=== PATIENT | male | born 1955 | race Caucasian/White ===

== ENCOUNTER 2024-08-02 15:09 | Inpatient (IN) | payer MEDICARE, OTHER ==
[~2024-08-02] VITALS: Ht 172.7 cm; Wt 74.8 kg
[2024-08-02] MEDS ORDERED: LORA0.5T48 PO (15:43)
[2024-08-02] MEDS ORDERED: BISA-79 PO (15:43)
[2024-08-02] MEDS ORDERED: ASCO500C18 PO (15:43)
[2024-08-02] MEDS ORDERED: BENA40TA8 PO (15:43)
[2024-08-02] MEDS ORDERED: DOCU250C14 PO (15:43)
[2024-08-02] MEDS ORDERED: ATOR40TA PO (15:43)
[2024-08-02] MEDS ORDERED: ASPI81TA31 PO (15:43)
[2024-08-02] MEDS ORDERED: CLOP75TA33 PO (15:43)
[2024-08-02] MEDS ORDERED: DIVA-76 PO (15:43)
[2024-08-02] MEDS ORDERED: ACET325T53 PO (15:43)
[2024-08-02] MEDS ORDERED: POLY17PO4 PO (15:55)
[2024-08-02] MEDS ORDERED: FOLI1TAB94 PO (15:55)
[2024-08-02] MEDS ORDERED: MAGN400O6 PO (15:55)
[2024-08-02] MEDS ORDERED: MULT-1045 PO (15:55)
[2024-08-02] MEDS ORDERED: QUET25TA PO (15:55)
[2024-08-02] MEDS ORDERED: TRAZ-182 PO (15:55)
[2024-08-02] MEDS ORDERED: THIA100T88 PO (15:55)
[2024-08-02] MEDS ORDERED: IPRA3AMP22 IH (15:55)
[2024-08-02] MEDS ORDERED: BISA10SU61 RC (15:55)
[2024-08-02] MEDS ORDERED: ACET-2154 PO (15:55)
[2024-08-02] MEDS ORDERED: NIFE90TA61 PO (15:55)
[2024-08-02] MEDS ORDERED: NICO-670 TD (15:55)
[2024-08-02] MEDS ORDERED: NA P133E RC (15:55)
[2024-08-02 20:00] VITALS: BP 152/63; TEMP 99; O2SAT 99
[2024-08-02] MEDS ORDERED: TEMAZEPAM 7.5 MG CAPSULE PO PRN (20:30)
[2024-08-02] MEDS ORDERED: MAG HYDROX/AL HYDROX/SIMETH 30 ML LIQUID UDC PO PRN (20:30)
[2024-08-02] MEDS ORDERED: MAGNESIUM HYDROXIDE 30 ML LIQUID UDC PO PRN (20:30)
[2024-08-02] MEDS ORDERED: ACETAMINOPHEN 325 MG TABLET PO PRN (20:30)
[2024-08-02] MEDS: LORAZEPAM 1 MG TABLET PO PRN (20:37)
[2024-08-02] MEDS: BLOOD SUGAR DIAGNOSTIC 1 EACH STRIP VI ONE (20:45)
[2024-08-02] MEDS: TEMAZEPAM 7.5 MG CAPSULE PO PRN (22:49)
[2024-08-03] MEDS: OLANZAPINE 10 MG VIAL IM ONE
[2024-08-03] MEDS: LORAZEPAM 1 MG TABLET PO PRN (04:02)
[2024-08-03 08:10] VITALS: BP 120/67; TEMP 97.8; O2SAT 98
[2024-08-03] MEDS ORDERED: BISACODYL 10 MG SUPP.RECT RC PRN (09:00)
[2024-08-03] MEDS: DOCUSATE SODIUM 250 MG CAPSULE PO SCH (09:00)
[2024-08-03] MEDS ORDERED: BISACODYL 5 MG TABLET.DR PO PRN (09:00)
[2024-08-03] MEDS: NIFEdipine XL 90 MG TABSR PO SCH (09:00)
[2024-08-03] MEDS: ASPIRIN 81 MG TAB.CHEW PO SCH (09:52)
[2024-08-03] MEDS: FOLIC ACID 1 MG TABLET PO SCH (09:52)
[2024-08-03] MEDS: BENAZEPRIL HCL 20 MG TABLET PO SCH (09:53)
[2024-08-03] MEDS: MIRALAX 17 GM POWD.PACK PO SCH (09:54)
[2024-08-03] MEDS: MULTIVITAMINS,THERAPEUTIC TABLET PO SCH (09:55)
[2024-08-03] MEDS: CLOPIDOGREL 75 MG TABLET PO SCH (09:55)
[2024-08-03] MEDS: ASCORBIC ACID 500 MG TABLET PO SCH (09:56)
[2024-08-03] MEDS: THIAMINE HCL 100 MG TABLET PO SCH (09:56)
[2024-08-03] MEDS ORDERED: QUET25TA36 PO (09:58)
[2024-08-03] MEDS: NICOTINE 7 MG/24HR PATCH TD SCH (11:24)
[2024-08-03] MEDS: QUETIAPINE FUMARATE 25 MG TABLET PO SCH ×2 (13:30→20:37)
[2024-08-03 17:02] VITALS: BP 126/75; TEMP 97.8; O2SAT 98
[2024-08-03 20:00] VITALS: BP 151/64; TEMP 98.2; O2SAT 97
[2024-08-03] MEDS: TRAZODONE 50 MG TABLET PO SCH (20:36)
[2024-08-03] MEDS: ATORVASTATIN 40 MG TABLET PO SCH (21:15)
[2024-08-04] MEDS: TEMAZEPAM 15 MG CAPSULE PO PRN (00:43)
[2024-08-04 08:09] VITALS: BP 103/56; TEMP 97.8; O2SAT 97
[2024-08-04] MEDS: DIVALPROEX 250 MG TABLET.DR PO SCH (08:45)
[2024-08-04] MEDS: diphenhydrAMINE 50 MG/1 ML VIAL IM STA (12:59)
[2024-08-04] MEDS: LORAZEPAM 2 MG/1 ML VIAL IM STA (12:59)
[2024-08-04] MEDS: HALOPERIDOL LACTATE 5 MG/1 ML VIAL IM STA (13:00)
[2024-08-04 20:00] VITALS: BP 141/81; TEMP 97.6; O2SAT 99
[2024-08-05 08:06] LABS: THYROID STIMULATING HORMONE 2.231 mIU/mL (0.358-3.740)
[2024-08-05] MEDS: QUETIAPINE FUMARATE 25 MG TABLET PO SCH (21:40)
[2024-08-06 07:30] VITALS: BP 150/84; TEMP 98.7; O2SAT 97
[2024-08-06 16:30] VITALS: BP 151/76; TEMP 98.2; O2SAT 98
[2024-08-06 20:01] VITALS: BP 118/70; TEMP 98.1; O2SAT 96
[2024-08-07 07:48] VITALS: BP 152/71; TEMP 98; O2SAT 96
[2024-08-07] MEDS: DIVALPROEX 250 MG TABLET.DR PO SCH (13:38)
[2024-08-07 15:14] VITALS: BP 100/61; TEMP 98.2; O2SAT 96
[2024-08-07 20:00] VITALS: BP 131/67; TEMP 97.5; O2SAT 94
[2024-08-08 07:57] VITALS: BP 160/58; TEMP 98.2; O2SAT 96
[2024-08-08 09:52] VITALS: BP 126/73; O2SAT 96
[2024-08-08 14:42] LABS: *BILIRUBIN,URIN NEGATIVE (NEGATIVE); *BLOOD, URINE NEGATIVE (NEGATIVE); *CLARITY,URINE CLEAR (CLEAR); *COLOR,URINE YELLOW (YELLOW); *KETONES,URINE NEGATIVE (NEGATIVE); *PROTEIN,URINE NEGATIVE (NEGATIVE); LEUKOCYTE ESTERASE ,URINE TRACE (NEGATIVE); NITRITE, URINE NEGATIVE (NEGATIVE); UGLUCOSE NEGATIVE (NEGATIVE)
[2024-08-08 15:04] LABS: BACTERIA,URINE MODERATE /HPF (NONE SEEN); RBC,URINE 0-3 /HPF (0-3); SQUAMOUS EPITHELIAL CELL,UR FEW /HPF (NONE SEEN); WBC,URINE 0-3 /HPF (0-3)
[2024-08-08 15:28] VITALS: BP 138/75; TEMP 98.2; O2SAT 98
[2024-08-08 20:00] VITALS: BP 130/74; O2SAT 96
[2024-08-09 08:12] VITALS: BP 105/82; TEMP 98; O2SAT 96
[2024-08-09 15:20] VITALS: BP 156/68; TEMP 98.2; O2SAT 98
[2024-08-09 20:00] VITALS: BP 144/66; TEMP 98.1; O2SAT 98
[2024-08-10 08:12] VITALS: BP 109/53; TEMP 98; O2SAT 97
[2024-08-10 16:55] VITALS: BP 118/78; TEMP 98; O2SAT 98
[2024-08-10] MEDS: QUETIAPINE FUMARATE 25 MG TABLET PO SCH (17:29)
[2024-08-10 20:00] VITALS: BP 89/53; TEMP 98; O2SAT 99
[2024-08-10 20:37] VITALS: BP 106/56
[2024-08-11 08:17] VITALS: BP 124/83; TEMP 98.5; O2SAT 97
[2024-08-11 19:53] VITALS: BP 91/58; TEMP 98.1; O2SAT 96
[2024-08-11 20:51] VITALS: BP 134/73
[2024-08-12 08:22] VITALS: BP 106/61; TEMP 98.1; O2SAT 98
[2024-08-12 19:59] VITALS: BP 116/64; TEMP 98.1; O2SAT 96
[2024-08-13 07:55] VITALS: BP 131/66; TEMP 97.6; O2SAT 95
[2024-08-13 16:36] VITALS: BP 109/64; TEMP 97.2; O2SAT 95
== END 2024-08-13 17:00 | DRG 885 ==
LOC: ER 15:09 → GPS 18:38
PROVIDERS: ADMIT Psychiatry & Neurology Psychiatry; ATTEND Nurse Practitioner Acute Care
DX: F39 Unspecified mood [affective] disorder (principal); F03.911 Unspecified dementia, unspecified severity, with agitation; F03.94 Unspecified dementia, unspecified severity, with anxiety; F03.93 Unspecified dementia, unspecified severity, with mood disturbance; F17.210 Nicotine dependence, cigarettes, uncomplicated; Z88.0 Allergy status to penicillin; Z79.899 Other long term (current) drug therapy; Z91.148 Patient's other noncompliance with medication regimen for other reason; Z86.73 Personal history of transient ischemic attack (TIA), and cerebral infarction without residual deficits; Z71.6 Tobacco abuse counseling; J44.9 Chronic obstructive pulmonary disease, unspecified; E78.5 Hyperlipidemia, unspecified; I10 Essential (primary) hypertension; D64.9 Anemia, unspecified
CPT/HCPCS: 36415; 83921; 84443; 87086; A4663; A9150; C1758; J1200; J1630; J2060; J2358; J3490